=== PATIENT | male | born 1965 ===

== ENCOUNTER → 2024-12-01 | Outpatient (CLI) | payer OTHER ==
[2024-12-02 10:50] LABS: Stool Occult Bld Immuno 1 Negative (NEGATIVE)
[2024-12-02 11:46] LABS: Campylobacter Sp Not Detected (NOT DETECT)
[2024-12-02 11:47] LABS: E. Coli O157 Not Detected (NOT DETECT); Enteroaggregative E. coli-EAEC Not Detected (NOT DETECT); Enteropathogenic E. coli-EPEC Not Detected (NOT DETECT); Enterotoxigenic E. coli-ETEC Not Detected (NOT DETECT); Salmonella Sp Not Detected (NOT DETECT); Shiga Toxin-prod E. coli-STEC Not Detected (NOT DETECT); Shigella/Enteroin E. coli-EIEC Not Detected (NOT DETECT); Vibrio Sp Not Detected (NOT DETECT)
[2024-12-07 20:48] LABS: OVA AND PARASITE,FECAL INTERP Negative (Negative)
== END ==
LOC: LAB SHORT 09:09 → LAB 09:09
DX: R10.9 Unspecified abdominal pain (principal)
CPT/HCPCS: 87177; 87209; 87507; G0328